=== PATIENT | female | born 1985 | race Caucasian/White ===

== ENCOUNTER → 2023-02-23 | Outpatient (CLI) | payer OTHER, SELFPAY ==
[2023-02-23 13:00] LABS: Estradiol 38.9 pg/mL; Follicle Stimulating Hormone 5.7 mIU/mL; Luteinizing Hormone 7.8 mIU/mL; Prolactin 8.4 ng/mL
[2023-02-26 04:07] LABS: 17-Hydroxyprogesterone 37 ng/dL (.)
[2023-02-27 14:10] LABS: Testosterone, % Free 1.96 % (0.50-2.80); Testosterone, Free 0.86 ng/dL (0.10-0.85); Testosterone, Total 44 ng/dL (8-60)
== END | disposition home or self-care (01) ==
PROVIDERS: Visit Provider Student in an Organized Health Care Education/Training Program
DX: N91.5 Oligomenorrhea, unspecified (principal)
CPT/HCPCS: 36415; 82627; 82670; 83001; 83002; 83498; 84146; 84402; 84403; 82626

== ENCOUNTER → 2023-03-17 | Outpatient (CLI) | payer OTHER, SELFPAY ==
--- NOTE | 2023-03-17 16:30 | EMB_PTH ---
PATIENT: THOM GARCIA LOC: [facility] U#:[id number] AGE/SX: 37/F ROOM: RE03/17/[address]: Dr. Mery Delgado DO : 1985 BED: DIS: 03/17/2023 SPEC #: [id number] RECD: 03/17/23 17:05 STATUS: MATTIE REDionicio #: [id number] LUIS: 03/17/23 16:[address]: Mery Delgado DEPT: SURGICAL PATHOLOGY RECD BY: Angela Powers ENTERED: 03/18/23 08:45 SP TYPE: ENDOM BX/C NIDHI DR: Dr. Macarena Van DO Tissues: Endometrium, NOS Procedures: Surgery Specimen Level IV HEADER OPERATION: Endometrial biopsy PRE-OP DIAGNOSIS: Abnormal uterine/vaginal bleeding TISSUE SUBMITTED: Endometrial biopsy MICROSCOPIC DIAGNOSIS Endometrium, biopsy: Proliferative endometrium with stromal hemorrhage. Focal stromal and glandular breakdown. AM:yue 03/19/2023 MICROSCOPIC DESCRIPTION Slides are reviewed. GROSS DESCRIPTION Received in fixative is one container labeled with the patient's name and designated endometrial biopsy. The specimen consists of multiple irregular fragments of reddish-grove soft tissue that in aggregate measure 3.0 x 1.0 x 0.1 cm. The specimen is totally submitted in one cassette. / AM:yue 03/18/2023 TC:5 CPT: 54815
== END | disposition home or self-care (01) ==
LOC: LABSPEC 16:58
PROVIDERS: Visit Provider Student in an Organized Health Care Education/Training Program
DX: N93.9 Abnormal uterine and vaginal bleeding, unspecified (principal)
CPT/HCPCS: 88305